=== PATIENT | male | born 1970 ===

== ENCOUNTER 2017-03-03 21:05 | Emergency (ER) | payer OTHER ==
[~2017-03-03] VITALS: Ht 175.3 cm; Wt 83.9 kg
[2017-03-03 21:35] VITALS: BP 122/77
[2017-03-03] MEDS ORDERED: CORTISONE28 GM TOP (21:58)
--- NOTE | 2017-03-03 21:59 | ED SKIN/ALLERGY COMPLAINT ---
History of Present Illness General Chief Complaint: Skin Rash/ Abcess Stated Complaint: PT HAS RASH ON ARMS AND BACK Source: patient Exam Limitations: no limitations Vital Signs & Intake/Output Vital Signs & Intake/Output Vital Signs Date Time Temp Pulse Resp B/P B/P Pulse O2 O2 Flow FiO2 Mean Ox Delivery Rate 03/03 2135 93 122/77 Allergies Coded Allergies: NO KNOWN ALLERGIES (02/17/12) Reconcile Medications Hydrocortisone (Cortisone) 1 % CREAM..G. 1 GRANT TOP DAILY PRN RASH Triage Note: PT TO ED WITH COMPLAINTS OF RED SPOTS TO ARM AND BACK. PT NOTICED THE RED SPOTS ABOUT 6 MONTHS AGO, BUT THEY WOULD APPEAR THEN DISAPPEAR. PT DENIES ANY ITCHING TO AREAS. Triage Nurses Notes Reviewed? yes HPI: This patient is a 46-year-old male who presented to the emergency department today for evaluation of a rash times approximate 6 months. The patient reported that the rash appears as red dots to his lower back and gets worse while he is in the shower and then dries up afterwards. He reported that the rash is always there. It is not painful or itchy. He denies any fevers or chills. No abdominal pain chest pain or difficulty breathing, or any other associated symptoms. (SAÚL LIVE PA-C) Past History Travel History Traveled to [place] past 21 day No Medical History Any Pertinent Medical History? see below for history Tetanus Vaccine: 12/31/12 Surgical History Surgical History: non-contributory Psychosocial History What is your primary language Estonian Tobacco Use: Current Daily Use Daily Tobacco Use Amount/Type: => 5 Cigarettes daily ETOH Use: denies use Illicit Drug Use: denies illicit drug use Family History Hx Contributory? No (SAÚL LIVE PA-C) Review of Systems Review of Systems Constitutional: Reports: no symptoms. EENTM: Reports: no symptoms. Respiratory: Reports: no symptoms. Cardiovascular: Reports: no symptoms. GI: Reports: no symptoms. Musculoskeletal: Denies: no symptoms. Skin: Reports: see HPI. Neurological/Psychological: Reports: no symptoms. All Other Systems: Reviewed and Negative (SAÚL LIVE PA-C) Physical Exam Physical Exam General Appearance: well developed/nourished, no apparent distress, alert, awake Comments: Well-developed well-nourished person in no acute distress HEENT: Head normocephalic, moist mucous membranes Neck: Supple, no lymphadenopathy Back: Normal gait Respiratory: No respiratory distress. Speaking in full sentences Extremities: No edema, full range of motion Neuro: Alert and oriented x3 Psych: Mood affect normal, normal memory normal judgment. Skin: Warm and dry. Approximately 0.5 cm in greatest diameter, erythematous, round, macular rash to the lower back extension to the gluteal region which is dry in appearance with no surrounding edema. (SAÚL LIVE PA-C) Progress Differential Diagnosis: abscess/cellulitis, contact dermatitis, drug reaction, erythema multiforme, shingles, urticaria Plan of Care: This patient is a 38-year-old male who presented to the emergency department today for evaluation of a nonspecific rash to his lower back which is nonpainful and nonpruritic. The patient has no other associated symptoms. It has been going on for approximately 6 months. He'll be discharged with a cortisone cream and dermatology follow-up. (SAÚL LIVE PA-C) Departure Departure Disposition: HOME OR SELF CARE Condition: Stable Clinical Impression Primary Impression: Rash and nonspecific skin eruption Referrals: PATIENT HAS NO PRIMARY CARE DR (PCP/Family) HARESH LAUREN,GRAY Irving Additional Instructions: Use topical medication as prescribed. Please call to schedule an appointment with the engraver signature information had been provided. Return for any worsening symptoms or concerns. Departure Forms: Customer Survey General Discharge Information Prescriptions: Current Visit Scripts Hydrocortisone (Cortisone) 1 GRANT TOP DAILY PRN RASH #1 TUBE (SAÚL LIVE PA-C) PA/[employer]ER Co-Sign Statement Statement: ED Attending supervision documentation- [] I saw and evaluated the patient. I have also reviewed all the pertinent lab results and diagnostic results. I agree with the findings and the plan of care as documented in the PA's/[employer] STABIL[employer]ER's documentation. [X] I have reviewed the ED Record and agree with the PA's/[employer]IL[employer]ER's documentation. [] Additions or exceptions (if any) to the PAs/ROTARY [employer] STABIL[employer]ER's note and plan are summarized below: [] (ERICK LAUREN,DANIELLE)
== END 2017-03-03 22:09 ==
LOC: ERH 21:05
DX: R21 Rash and other nonspecific skin eruption (principal)